=== PATIENT | female | born 1955 | race Caucasian/White ===

== ENCOUNTER 2017-04-14 07:10 | Day surgery (SDC) | payer BC ==
[2017-04-13 15:51] VITALS: BMI 31.1
[2017-04-14] MEDS ORDERED: PROMETHAZINE HCL 25 MG/1 ML VIAL IVPUSH PRN (08:20)
[2017-04-14] MEDS ORDERED: ONDANSETRON 4 MG/2 ML VIAL IVPUSH PRN (08:20)
[2017-04-14] MEDS ORDERED: LACTATED RINGERS SOLUTION 1,000 ML IV SCH (08:30)
[2017-04-14] MEDS ORDERED: MIDAZOLAM HCL 2 MG/2 ML SINGLE DOSE VIAL ONE ×2 (08:50→09:23)
[2017-04-14] MEDS ORDERED: BUPIVACAINE HCL/PF 0.5% (5MG/ML) 10 ML VIAL ONE (09:04)
[2017-04-14] MEDS ORDERED: LIDOCAINE HCL 1%, 10 MG/ML (20ML VIAL) ONE (09:04)
--- NOTE | 2017-04-14 09:04 | HP ---
Satellite [facility] - Chief Complaint Chief Complaint: left wrist pain History of Present Illness: left Dequervains History Source: Patient Limitations to Obtaining History: No Limitations - Past Medical History Allergies/Adverse Reactions: Allergies Allergy/AdvReac Type Severity Reaction Status Date / Time Sulfa (Sulfonamide Allergy Severe Verified 04/14/17 07:51 Antibiotics) - Current Medications Current Medications: Home Medications Medication Instructions Recorded Aspirin 81 mg PO DAILY 04/13/17 Atorvastatin Ca [Lipitor] 30 mg PO DAILY 04/13/17 Ca/D3/Mag#11/Zinc/Analog Design Engineer/[place]/Bor 2 tab PO DAILY 04/13/17 [Caltrate 600+D Plus Tablet] Satellite Physical Exam - Physical Examination Vital Signs: Vital Signs Period Temp Pulse Resp BP Sys/Bernal Pulse Ox Last 24 Hr 98.2 F 85 18 150/90 98 General Appearance: Well Nourished ENT: Clear Lung: Clear to auscultation Heart: Regular rate & rhythm Breasts: Soft Abdomen: Soft Extremities: No edema Satellite Impression/Plan - Impression/Plan Impression: left Dequervain's Operative Procedure: left Dequervain's release Date to be Performed: 04/14/17
[2017-04-14] MEDS ORDERED: ceFAZolin SODIUM 1 GM VIAL IVPB ONE (09:26)
[2017-04-14] MEDS ORDERED: LIDOCAINE HCL 1%, 10 MG/ML (20ML VIAL) IJ ONE (09:34)
[2017-04-14] MEDS ORDERED: BUPIVACAINE HCL/PF 0.5% (5MG/ML) 10 ML VIAL IJ ONE (09:34)
--- NOTE | 2017-04-14 10:01 | OP ---
Operative Note - Note: Operative Date: 04/14/17 Pre-Operative Diagnosis: left Dequervain's Operation: left Dequervain's release, tendon sheath excision Post-Operative Diagnosis: Same as Pre-op Surgeon: Wilder Crandall Anesthesiologist/NECKTIES PAINTER: Herb Lutz Anesthesia: General, Local Specimens Removed: tendon sheath Estimated Blood Loss (mls): 0 Drains, Volume Out (mls): 0 Blood Volume Replaced (mls): 0 Fluid Volume Replaced (mls): 500 Operative Report Dictated: Yes
[2017-04-14 11:39] VITALS: TEMP 97.9
[2017-04-14 12:01] VITALS: BP 136/78; PULSE 78
--- NOTE | 2017-04-14 14:47 | OP ---
DATE OF OPERATION: 04/14/17 PREOPERATIVE DIAGNOSIS: Left de Quervain tenosynovitis. POSTOPERATIVE DIAGNOSIS: Left de Quervain tenosynovitis. PROCEDURE: Left de Quervain release and tendon sheath excision. SURGEON: Wilder Combs MD AEROPLANE PILOT: None, ANESTHESIA: MAC anesthesia with local injection of 12 mL 0.5% Marcaine 1% lidocaine mix. DRAINS: None. BLOOD LOSS: None. BLOOD GIVEN: None. FLUID REPLACEMENT: 500 mL. INDICATIONS: This patient is a 61-year-old female with a preoperative diagnosis of recurrent, severe left de Quervain tenosynovitis. After understanding the potential risks, complications, alternatives, and benefits to surgery versus nonsurgical treatment, the patient elected to undergo this procedure. She understands she may have temporary or permanent paresthesias. She will have a scar. DESCRIPTION OF PROCEDURE: The patient was brought to the operating room. Peripheral IV place. IV sedation given. Then 1 g of IV Ancef was given. MAC anesthesia was induced. Tourniquet was applied to the left upper arm. Left upper extremity was prepped and draped in the usual sterile fashion, elevated, exsanguinated with an Esmarch bandage, and tourniquet inflated to 250 mmHg. A longitudinal incision was marked out with a marking pen over the left wrist 1st dorsal wrist compartment. Then 12 mL of 0.5% Marcaine 1% lidocaine mix was injected in and around the surgical incision. The incision was made with a No. 15 scalpel blade. Subcutaneous hemostasis was achieved with a Bovie cautery. Dissection done with Littler scissors to the 1st dorsal wrist compartment. A self-retraining Weitlaner retractor was placed into the wound. Using a 7 retractor and the Weitlaner under direct visualization starting proximally and going distally, I used a fresh No. 15 scalpel blade to incise the 1st dorsal wrist compartment. It left a shelf to prevent subluxation of the tendon sheaths. The patient's abductor pollicis longus and extensor pollicis brevis were basically 1 big, large tendon with 2 distinct muscle bellies more proximally. It was large. The entire sheath was released distally and proximally. I was able to identify the EPL. I excised the roof of the tendon sheath and passed it off the field as specimen, tendon sheath left wrist. The entire area was copiously irrigated and washed out. I, again, checked the extent of the release. It was complete and, therefore, closure was done with 4-0 undyed Vicryl in the deep dermal layer and final skin reapproximation was done with a running subcuticular 4-0 Biosyn stitch. The area was then washed and dried and covered with Steri-Strips , 4x4s, fluffs between the fingers, Webril, and a 4-inch Orthoglass fiberglass thumb spica splint was applied and wrapped with John and Coban. Total tourniquet time was 18 minutes. There were no complications during the case. The patient tolerated the procedure quite well and was brought to the ambulatory recovery room in stable condition. WILDER COMBS M.D. [id number] MTDD
--- NOTE | 2017-04-15 14:56 | PATH ---
Surgical Pathology Report Patient Name: ROSAMARIA DE LA O [facility]. Rec. #: [id number] /Age/Gender: 1955 (Age: 61) / F Account: [id number] Location: [facility] Taken: 04/14/2017 Received: 04/14/2017 Reported: 04/15/2017 Physicians: Wilder Crandall M.D. Specimen(s) Received TENDON SHEATH LEFT WRIST Clinical History Dequervain's tenosynovitis left wrist Final Diagnosis SOFT TISSUE, TENDON SHEATH LEFT WRIST, DEQUERVAIN'S RELEASE: BENIGN FIBROCONNECTIVE AND FIBROFATTY TISSUE WITH MYXOID DEGENERATION. Electronically Signed Miles Gonzalez M.D. Gross Description Received in formalin labeled "tendon sheath left wrist" is a 1.4 x 0.7 x 0.2 cm garcia soft tissue fragment. The specimen is submitted in toto in one cassette. /04/14/201704/14/2017
== END 2017-04-14 12:03 | disposition home or self-care (01) ==
LOC: JASU-SURG 07:10
PROVIDERS: ATTEND Orthopaedic Surgery
PROC: 0LB60ZZ Excision of Left Lower Arm and Wrist Tendon, Open Approach (ICD-10-PCS; 2017-04-14)
PROC: 0LN60ZZ Release Left Lower Arm and Wrist Tendon, Open Approach (ICD-10-PCS; principal; 2017-04-14 09:00)
DX: M65.4 Radial styloid tenosynovitis [de Quervain] (principal)
CPT/HCPCS: 88304-TC; 94760

== ENCOUNTER 2017-05-05 07:41 | Day surgery (SDC) | payer BC, OTHER ==
[2017-05-03 11:46] VITALS: BMI 31.1
--- NOTE | 2017-05-05 08:19 | HP ---
Satellite H - Chief Complaint Chief Complaint: left knee pain - Past Medical History Allergies/Adverse Reactions: Allergies Allergy/AdvReac Type Severity Reaction Status Date / Time Sulfa (Sulfonamide Allergy Severe "RASH" Verified 05/05/17 08:17 Antibiotics) - Current Medications Current Medications: Home Medications Medication Instructions Recorded Aspirin 81 mg PO DAILY 04/13/17 Atorvastatin Ca [Lipitor] 30 mg PO DAILY 04/13/17 Ca/D3/Mag#11/Zinc/Nursing Home Assistant/Hosea/Bor 2 tab PO DAILY 04/13/17 [Caltrate 600+D Plus Tablet] Hydrocodone/Acetaminophen [[place] 1 - 2 each PO Q6H #40 tablet MDD 8 05/05/17 5-325 Tablet] Satellite Physical Exam - Physical Examination Vital Signs: Vital Signs Period Temp Pulse Resp BP Sys/Bernal Pulse Ox Last 24 Hr 98.1 F 88 20 147/91 97 General Appearance: Well Nourished, Well Developed, Alert & Oriented x3 ENT: Clear Lung: Normal air movement Heart: Regular rate & rhythm Extremities: Other (left knee- + swelling, + ttp ,decr rom, + mcmurrays, + apleys, nvi MRI + mt) Neurological: Intact, Alert, Oriented Satellite Impression/Plan - Impression/Plan Impression: left knee internal derangement Operative Procedure: left knee arthroscopy Date to be Performed: 05/05/17
[2017-05-05] MEDS ORDERED: MIDAZOLAM HCL 2 MG/2 ML SINGLE DOSE VIAL ONE (09:59)
[2017-05-05] MEDS ORDERED: oxyCODONE HCL 5 MG TABLET PO PRN (10:40)
[2017-05-05] MEDS ORDERED: ONDANSETRON 4 MG/2 ML VIAL IVPUSH PRN (10:40)
[2017-05-05] MEDS ORDERED: ACETAMINOPHEN 1000 MG/100 ML VIAL (NON FORMULARY) IVPB PRN (10:41)
[2017-05-05] MEDS ORDERED: LACTATED RINGERS SOLUTION 1,000 ML IV SCH (10:45)
[2017-05-05] MEDS ORDERED: ceFAZolin SODIUM 1 GM VIAL IVPB ONE (11:03)
[2017-05-05] MEDS ORDERED: HYDROmorphone HCL/PF 1 MG/ML VIAL (FOR PYXIS CHARGING ONLY) ONE (11:13)
--- NOTE | 2017-05-05 11:45 | OP ---
Operative Note - Note: Operative Date: 05/05/17 Pre-Operative Diagnosis: left knee pain, meniscus tear, OA Operation: left knee arthroscopy, debridement chondroplasty, debridement of scar tissue Findings: OA Grade 1-2 medial comp, Grade 2-3 PF joint, no meniscus tears, + abundant scar tissue Post-Operative Diagnosis: Other Surgeon: Wilder Crandall Anesthesiologist/HANDLE TURNER: Lobo Farrar Anesthesia: General, Local Specimens Removed: shavings Estimated Blood Loss (mls): 0 Blood Volume Replaced (mls): 0 Fluid Volume Replaced (mls): 700 Operative Report Dictated: Yes
[2017-05-05 13:04] VITALS: TEMP 97.6
[2017-05-05] MEDS ORDERED: ONDANSETRON 4 MG/2 ML VIAL ONE (13:15)
[2017-05-05 15:07] VITALS: BP 140/70; PULSE 78
--- NOTE | 2017-05-05 16:50 | OP ---
DATE OF OPERATION: 05/05/2017 PREOPERATIVE DIAGNOSIS: Left knee medial meniscus tear and osteoarthritis. POSTOPERATIVE DIAGNOSIS: Left knee osteoarthritis and scar tissue. PROCEDURE: Left knee arthroscopy, debridement chondroplasty and debridement of scar tissue. SURGEON: Wilder Crandall MD. ELECTRICAL AND INSTRUMENT ENGINEER: None. ANESTHESIA: . DRAINS: None. COMPLICATIONS: None. SPECIMENS: Arthroscopic shavings. BLOOD LOSS: None. BLOOD GIVEN: None. FLUID REPLACEMENT: 500 mL. INDICATIONS: This patient, Janet Luther, is a 61-year-old female with a preoperative diagnosis of left knee pain, meniscus tear, and osteoarthritis. After understanding the potential risks, complications, alternative, and benefits of surgery versus nonsurgical treatment the patient elected to undergo this procedure. DESCRIPTION OF PROCEDURE: The patient was brought to the operating room. Peripheral IV placed. Anesthesia was given. Then 1 g of IV Ancef was given. LMA anesthesia was induced. Ample Webril padding was placed on the left thigh. She was placed into the C-clamp leg soto with the Styrofoam ring. The left lower extremity was prepped and draped in a sterile fashion, elevated, and exsanguinated with an Esmarch bandage and tourniquet inflated to 250 mmHg. A superomedial outflow portal was established. The lateral portal was established under direct visualization using the spinal needle. A medial portal was established and a diagnostic arthroscopy was performed. The patients medial compartment looked okay. There was some chondromalacia of both the medial and femoral condyle and medial tibial plateau I would say small isolated areas of grade 2. The medial meniscus looked good. It was explored with the probe. I did not find any tear so it was left alone. The ACL looked frayed. I pulled on it with the prone and it had the appropiate tension. These frayed anterior torn fibers were debrided with the shaver. The patient had a lot of fat and what looked like fibrous scar tissue in the intercondylar notch. This was removed. There was a lot of the same material extending over into the anterior part of the lateral compartment. This was removed and debrided as well. Then I was able to visualize the lateral meniscus which looks s lightly redundant. There were small areas of fraying but overall there was no jarad tear. It was probed and I could not find any tear. Photographs were taken. The lateral femoral condyle and lateral tibial plateau looked good. Next, our attention was turned to the patellofemoral joint. Again there was a lot of this fatty fibrous tissue. It was debrided and I was able to see the patellofemoral joint. There was a crabmeat effect chondromalacia at the undersurface of the patella and areas of grade 2 and small areas of grade 3 perhaps the size of a dime in the femoral trochlea. The area was gently debrided after the debridement chondroplasty was performed. All excess saline was removed and all debris was removed. The arthroscopy portals were closed with 3-0 nylon sutures. The area was then washed and dry and covered with Xeroform, 4 x 4, gauze, Webril, and an Markus bandage. The tourniquet was taken after a total tourniquet time of about 25 minutes. There were no complications during the case. The patient tolerated the procedure well and was brought ambulatory to the recovery room in stable condition. Aaron [id number]
--- NOTE | 2017-05-06 13:12 | PATH ---
Surgical Pathology Report Patient Name: ROSAMARIA DE LA O Med. Rec. #: [id number] /Age/Gender: 1955 (Age: 61) / F Account: [id number] Location: [facility] Taken: 05/05/2017 Received: 05/05/2017 Reported: 05/06/2017 Physicians: Wilder Crandall M.D. Specimen(s) Received SHAVINGS LEFT KNEE Clinical History Tear left knee Final Diagnosis KNEE, ARTHROSCOPIC SHAVING: FIBROCARTILAGE WITH MYXOID DEGENERATIVE CHANGES, ALONG WITH PORTIONS OF SYNOVIUM AND HYALINE CARTILAGE. Comment: The surgical pathology requisition indicates the specimen came from the left knee, but the specimen container is labeled "right knee shavings". Recommend correlation with clinical findings and follow up as clinically indicated. Electronically Signed Sohail Sykes M.D. Gross Description Received in formalin, labeled "right knee shavings," but indicated on the requisition to be left knee shavings, is a 4.0 x 3.8 x 0.4 cm. aggregate of garcia-yellow soft tissue fragments. A medical center representative portion is submitted in one cassette. /05/05/2017 saudi05/05/2017
== END 2017-05-05 15:08 | disposition home or self-care (01) ==
LOC: JASU-SURG 07:41
PROVIDERS: ATTEND Orthopaedic Surgery
PROC: 0SBD4ZZ Excision of Left Knee Joint, Percutaneous Endoscopic Approach (ICD-10-PCS; principal; 2017-05-05 09:30)
DX: M17.12 Unilateral primary osteoarthritis, left knee (principal); M23.8X2 Other internal derangements of left knee
CPT/HCPCS: 88304-TC; 94760; 97116-GP

== ENCOUNTER 2019-03-02 09:11 | Day surgery (SDC) | payer BC, OTHER ==
[2019-03-01 12:27] VITALS: BMI 31.6
[2019-03-02 11:29] VITALS: TEMP 98.2
[2019-03-02 12:25] VITALS: BP 143/74; PULSE 88
--- NOTE | 2019-03-03 19:44 | PATH ---
Surgical Pathology Report Patient Name: ROSAMARIA DE LA O [facility]. Rec. #: [id number] /Age/Gender: 1955 (Age: 63) / F Account: [id number] Location: [facility] Taken: 03/02/2019 Received: 03/02/2019 Reported: 03/03/2019 Physicians: Suman Osman D.O. Specimen(s) Received TRANSVERSE COLON Clinical History History of diverticulitis Postoperative diagnosis: Diverticulosis, colon polyp Final Diagnosis TRANSVERSE COLON, POLYP, BIOPSY: POLYPOID COLONIC MUCOSA WITH PROMINENT LYMPHOID AGGREGATE AND FOCAL SUPERFICIAL HYPERPLASTIC FEATURES. Electronically Signed Halley Cervantes M.D. Gross Description Received in formalin, labeled "transverse colon polyp biopsy" are 2 garcia, irregular portions of soft tissue measuring 0.3 and 0.4 cm. in greatest dimension. The specimens are submitted in toto in one cassette. /03/02/2019 saudi03/02/2019
== END 2019-03-02 12:25 | disposition home or self-care (01) ==
LOC: JASU-ENDO 09:11
PROVIDERS: ATTEND Internal Medicine Gastroenterology
PROC: 0DBL8ZX Excision of Transverse Colon, Via Natural or Artificial Opening Endoscopic, Diagnostic (ICD-10-PCS; principal; 2019-03-02 09:30)
DX: K57.30 Diverticulosis of large intestine without perforation or abscess without bleeding (principal); K64.8 Other hemorrhoids; D12.3 Benign neoplasm of transverse colon
CPT/HCPCS: 88305-TC

== ENCOUNTER 2021-12-11 04:45 | Day surgery (SDC) | payer OTHER, BC ==
[2021-12-04 16:46] VITALS: BMI 32.1
[2021-12-11 12:19] VITALS: BP 156/80; PULSE 80; TEMP 97.2
== END 2021-12-11 12:00 | disposition home or self-care (01) ==
LOC: JASU-ENDO 04:45
PROVIDERS: ATTEND Internal Medicine Gastroenterology
PROC: 0DB68ZX Excision of Stomach, Via Natural or Artificial Opening Endoscopic, Diagnostic (ICD-10-PCS; 2021-12-11)
PROC: 0DB18ZX Excision of Upper Esophagus, Via Natural or Artificial Opening Endoscopic, Diagnostic (ICD-10-PCS; 2021-12-11)
PROC: 0DB28ZX Excision of Middle Esophagus, Via Natural or Artificial Opening Endoscopic, Diagnostic (ICD-10-PCS; 2021-12-11)
PROC: 0DB38ZX Excision of Lower Esophagus, Via Natural or Artificial Opening Endoscopic, Diagnostic (ICD-10-PCS; principal; 2021-12-11 10:00)
DX: K29.50 Unspecified chronic gastritis without bleeding (principal); K44.9 Diaphragmatic hernia without obstruction or gangrene; I10 Essential (primary) hypertension; E11.9 Type 2 diabetes mellitus without complications; Z79.84 Long term (current) use of oral hypoglycemic drugs
CPT/HCPCS: 88305-TC; 88342-TC; J0131